=== PATIENT | male | born 1955 | race Two or more races ===

== ENCOUNTER 2025-03-26 09:37 | Emergency (ER) | payer MEDICARE, SELFPAY ==
[2025-03-26 09:46] VITALS: O2SAT 97; BMI 31.0
--- NOTE | 2025-03-26 09:49 | EDNOTE_ITS ---
ED Back Injury Pain RME/HPI General Chief Complaint: Back Pain/Injury Stated Complaint: NECK PAIN Time Seen by Provider: 03/26/25 09:47 Arrival date/time: 03/26/25 09:37 RME / HPI RME / HPI Narrative: 69-year-old with a reported history of cervical spine surgery and chronic neck and upper back pain brought in by ambulance complaining of severe shoulder and neck pain. Patient states he does get occasional exacerbations of his pain. P atient states it helps to stay still. EMS states they found the patient lying on the ground. Patient states he did not fall but was helped to the ground due to pain. Patient states he had surgery in [place]. He has been worked up there for occasional exacerbations also. He was told there that his pain was due to occasional severe muscle spasms. He has had some local injections there. He states his exacerbations have recently becoming more frequent. Related Data Allergies Allergy/AdvReac Type Severity Reaction Status Date / Time No Known Allergies Allergy Verified 03/26/25 09:53 ED Exam Narrative Physical exam: GENERAL APPEARANCE: alert and oriented x 4, well-developed, well-nourished, appears in pain HEENT: Normocephalic, atraumatic; pupils equal, round, reactive to light; EOMI; mucous membranes pink, moist; oropharynx clear NECK: LROM secondary to pain, trapezius muscle tightness, spasm LUNGS: CTABL; no wheezes, no rales, no rhonchi HEART: Regular rate, regular rhythm; normal S1, S2; no murmurs ABDOMEN: non distended; normal BS; soft, no tenderness, no guarding, no rebound; no masses, no organomegaly, no hernia BACK: no CVA tenderness EXTREMITIES: atraumatic; no edema NEUROLOGIC: awake; alert and oriented x4; cranial nerves II-XII grossly intact; no focal sensory or motor deficits PSYCHIATRIC: appropriate mood and affect SKIN: warm, dry, normal color; no rashes Course Course Course Narrative: On reexamination patient much improved. Sitting up. Just finished lunch. Quality Measures none Orders Category Date Time Status Diet Regular Diet 03/26/[address] cervical spine wo con Stat Exams 03/26/25 10:[address] thoracic spine wo con Stat Exams 03/26/25 10:07 Completed CYCLObenzaPRINE [Flexeril] Med 03/26/25 14:03 Discontinued 5 mg PO X1 ONE Diazepam Inj [Valium Inj] Med 03/26/25 09:48 Discontinued 5 mg IVP X1 ONE HYDROcodone*/APAP 5/325 [[place] 5/325] Med 03/26/25 14:03 Discontinued 1 tab PO X1 ONE Ketorolac Inj [Toradol Inj] Med 03/26/25 09:48 Discontinued 15 mg IVP X1 ONE Morphine* Inj Med 03/26/25 09:48 Discontinued 4 mg IVP X1 ONE Ondansetron Inj [Zofran Inj] Med 03/26/25 09:48 Discontinued 4 mg IVP X1 ONE Vital Signs Vital signs: Vital Signs Temperature 97.8 F 03/26/25 09:58 Pulse Rate 80 03/26/25 09:58 Respiratory Rate 18 03/26/25 09:58 Blood Pressure 161/115 H 03/26/25 09:58 Pulse Oximetry (%) 95 03/26/25 09:58 Oxygen Delivery Method Room Air 03/26/25 09:58 Back Pain / Injury Patient data External records reviewed:: [facility] previous records Clinical information provided by:: patient Social determinants that could affect healthcare access:: none Patient has the following chronic illnesses:: chronic neck pain How is presenting disease/condition affected by chronic disease/condition?: exacerbated by Evaluation data The following diagnostics were reviewed and interpreted by me:: radiology exam(s) Lab and/or radiology exams considered but not ordered:: none Interpretation Summary: no acute findings Medications / Prescriptions Medications or Prescriptions considered but not ordered:: none Medication administrations:: Medication Administration History Discontinued Medications Hydrocodone Bitart/Acetaminophen (Hydrocodone/Apap 5/325 Tablet) 1 tab PO X1 ONE Stop: 03/26/25 14:04 Last Admin: 03/26/25 14:34 Dose: 1 tab Documented By: JULISA Cyclobenzaprine HCl (Cyclobenzaprine 5 Mg Tablet) 5 mg PO X1 ONE Stop: 03/26/25 14:04 Last Admin: 03/26/25 14:34 Dose: 5 mg Documented By: JULISA Diazepam (Diazepam Inj 5 Mg/Ml Vial 2 Ml) 5 mg IVP X1 ONE Stop: 03/26/25 09:49 Last Admin: 03/26/25 10:10 Dose: 5 mg Documented By: JULISA Ketorolac Tromethamine (Ketorolac Inj 30 Mg/Ml Vial) 15 mg IVP X1 ONE Stop: 03/26/25 09:49 Last Admin: 03/26/25 10:09 Dose: 15 mg Documented By: CS Morphine Sulfate (Morphine Sulf Inj 4 Mg/Ml Vial) 4 mg IVP X1 ONE Stop: 03/26/25 09:49 Last Admin: 03/26/25 10:09 Dose: 4 mg Documented By: CS Ondansetron HCl (Ondansetron Inj 2 Mg/Ml Inj 2 Ml) 4 mg IVP X1 ONE Stop: 03/26/25 09:49 Last Admin: 03/26/25 10:10 Dose: 4 mg Documented By: CS as above Consultations Consultation(s) initiated? (list below): No Diagnosis Most likely diagnosis given after review of the tests above:: muscle spasm Admission Indicated Admission indicated?: not indicated Admission Request Was there a request for admission?: No Disposition Plan Disposition Plan: Discharge Discharge Attestation Discharge Attestation: The patient and all family members were given an opportunity to ask questions and understood the discharge instructions. Discharge instructions specifically effects, indications for sooner follow up or return to the emergency department, and the expected course of current diagnosis. Patient condition: Stable Discharge Plan Plan Patient Disposition: HOME (Self Care) Prescriptions/Referrals Referrals: Charles Armendariz DO [Primary Care Provider, Family Practice] - In 1 week Problem List Clinical Impression: Acute neck pain, Chronic neck pain, Muscle spasm Patient/Caregiver Discharge Instructions Education Materials: ED Muscle Spasm, ED Neck Pain Print Language: Kazakh Stand Alone Forms: Lisa Award Info., Patient Portal Info Letter
[2025-03-26 09:58] VITALS: BP 161/115; PULSE 80; RESP 18; TEMP 36.6; O2SAT 95
--- NOTE | 2025-03-26 10:07 | XR_ITS ---
Examination: CT cervical spine without contrast 2-D sagittal reconstructions 2-D coronal reconstructions 3-D reconstructions. Exam date and time: March 26, 2025, 10:48 a.m. INDICATIONS: Severe neck pain today, status post neck surgery 1 year ago CTDI:vol (mGy) 19 DLP: (mGycm) 422 Technique: Multiple 2 mm axial sections of the cervical spine have been obtained. The coronal and sagittal reconstructions have been obtained. 3-D reconstructions have been obtained. Low dose protocols were performed. One or more of the following dose reduction techniques were used; automated exposure control, adjustment of the mA and/or KV according to patient size, use of iterative reconstruction technique. Findings: Axial sections demonstrate intact base of the skull. C1 exhibit satisfactory relationship to the odontoid. No acute cervical vertebral body fracture seen. Alignment posterior spinous processes satisfactory. Extensive cervical fusion C2-C7 Satisfactory alignment Axial images demonstrate no focal cervical disc protrusion Extensive laminectomies Moderate bilateral neuroforaminal stenosis C3-C4, C4-C5, C5-C6 Impression: No acute cervical fracture. Extensive cervical fusion and laminectomies No focal cervical disc protrusion If severe pain persists, recommend CT myelography follow-up
--- NOTE | 2025-03-26 10:07 | XR_ITS ---
Examination: CT thoracic spine, without contrast. 2-D sagittal reconstructions. 2-D coronal reconstructions. 3-D reconstructions. Date and time of exam: December 25, 2024, 10:52 a.m. INDICATIONS: Onset severe back pain beginning this morning CTDI: vol (mGy): 32.8 DLP: (mGycm): 1282 Technique: Multiple 1.25 mm axial sections of the thoracic spine without intravenous contrast have been obtained. 2-D sagittal and coronal reconstructions have been obtained. 3-D reconstructions have been obtained. Low dose protocols were performed. One or more of the following dose reduction techniques were used; automated exposure control, adjustment of the mA and/or KV according to patient size, use of iterative reconstruction technique. 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
[2025-03-26] MEDS: KETOROLAC INJ 30 MG/ML VIAL 15 MG IVP (10:09)
[2025-03-26] MEDS: MORPHINE SULF INJ 4 MG/ML VIAL IVP (10:09)
[2025-03-26] MEDS: DIAZEPAM INJ 5 MG/ML VIAL 2 ML IVP (10:10)
[2025-03-26] MEDS: ONDANSETRON INJ 2 MG/ML INJ 2 ML 4 MG IVP (10:10)
[2025-03-26 12:41] VITALS: BP 142/85; PULSE 55; RESP 18; TEMP 36.5; O2SAT 100
[2025-03-26] MEDS: HYDROcodone/APAP 5/325 TABLET 1 TAB PO (14:34)
== END 2025-03-26 16:35 | disposition home or self-care (01) ==
PROVIDERS: Emergency Provider Emergency Medicine; PCP Family Medicine
DX: M54.2 Cervicalgia (principal); M62.838 Other muscle spasm; M54.6 Pain in thoracic spine; G89.29 Other chronic pain
CPT/HCPCS: 72125; 72128; 96374; 96375; 99283; J1885; J2270; J2405; J3360; A9270